=== PATIENT | male | born 1985 | race African-American/Black ===

== ENCOUNTER 2018-09-11 15:05 | Emergency (ER) | payer OTHER ==
[~2018-09-11] VITALS: Ht 175.3 cm; Wt 70.3 kg
[2018-09-11 15:08] VITALS: BP 130/76; Ht 175.3 cm; Wt 70.3 kg
== END 2018-09-11 16:09 | disposition home or self-care (01) ==
LOC: ED 15:05
DX: N34.2 Other urethritis (principal)
CPT/HCPCS: 87491; 87591; J0696

== ENCOUNTER 2018-09-12 06:51 | Emergency (ER) | payer OTHER ==
[~2018-09-12] VITALS: Ht 175.3 cm; Wt 68.9 kg
[2018-09-12 06:56] VITALS: Ht 175.3 cm; Wt 68.9 kg
[2018-09-12 07:25] VITALS: BP 123/70
== END 2018-09-12 07:25 | disposition home or self-care (01) ==
LOC: ED 06:51
DX: N34.2 Other urethritis (principal)